=== PATIENT | female | born 2000 | race Caucasian/White ===

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

== ENCOUNTER 2018-01-15 18:02 | Emergency (ER) | payer OTHER ==
[2018-01-15 18:10] VITALS: BP 101/69
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
== END 2018-01-15 20:12 | disposition home or self-care (01) ==
LOC: ED 18:02
DX: S63.591A Other specified sprain of right wrist, initial encounter (principal); X50.1XXA Overexertion from prolonged static or awkward postures, initial encounter; Y93.F9 Activity, other caregiving; Y92.099 Unspecified place in other non-institutional residence as the place of occurrence of the external cause; Y99.0 Civilian activity done for income or pay
CPT/HCPCS: 99282; 99283

== ENCOUNTER 2018-01-17 12:42 | Emergency (ER) | payer OTHER ==
[2018-01-17 12:56] VITALS: BP 104/82
--- NOTE | 2018-01-17 14:08 | ED Physician Documentation ---
PD HPI UPPER EXT INJURY - Stated complaint Stated Complaint: ARM PX - Chief complaint Chief Complaint: General - History obtained from History obtained from: Patient - History of Present Illness Location: Left, Wrist Recently seen: Emergency Dept (2 days ago.) - Additonal information Additional information: The patient is a 17-year-old female who was seen here in the emergency department 2 days ago and diagnosed with a left wrist sprain. She returns today because her employer, [employer], is requesting a work release/restr iction form before she can return to work. She reports that her pain is improving, although she continues to have discomfort with range of motion in the wrist. She has been wearing the Velcro wrist splint that was applied with and seen here 2 days ago. Review of Systems Constitutional: denies: Fever Musculoskeletal: reports: Joint pain (left wrist). denies: Joint swelling Neurologic: denies: Focal weakness, Numbness PD PAST MEDICAL HISTORY - Past Medical History Psych: Depression, Anxiety, ADD/ADHD - Past Surgical History Past Surgical History: No - Present Medications Home Medications: Ambulatory Orders Medication Instructions Recorded Confirmed Medroxyprogesterone Acetate 150 mg IM 01/15/18 [Depo-Provera] - Allergies Allergies/Adverse Reactions: Allergies Allergy/AdvReac Type Severity Reaction Status Date / Time Penicillins AdvReac Unknown Verified 01/17/18 12:55 - Social History Does the pt smoke?: No Smoking Status: Never smoker Does the pt drink ETOH?: No Does the pt have substance abuse?: Yes - Immunizations Immunizations are current?: Yes - POLST Patient has POLST: No PD ED PE NORMAL - Vitals Vital signs reviewed: Yes (normal) - General General: Alert and oriented X 3, Well developed/nourished - HEENT HEENT: Atraumatic - Respiratory Respiratory: No respiratory distress - Derm Derm: No rash - Extremities Extremities: Other (There is mild tenderness to palpation at the radial dorsal aspect of the left wrist. It is exacerbated with extension and flexion of the wrist. Distal neurovascular is intact.) - Neuro Neuro: Alert and oriented X 3, No motor deficit, No sensory deficit Results - Vitals Vitals: Oxygen O2 Source Room air PD MEDICAL DECISION MAKING - ED course Complexity details: reviewed old records, considered differential, d/w patient ED course: The patient's presentation is most consistent with improving left wrist sprain. Her sole reason for coming to the emergency department is to have paperwork filled out for her employer. The paperwork was completed and signed. I suggested to the patient that establishing care with the primary care physician would be a good idea. Departure - Departure Disposition: 01 Home, Self Care Clinical Impression: Encounter for wound re-check Condition: Stable Instructions: ED Splint Care Velcro, ED Sprain Wrist Follow-Up: Estefanía Santana PA-C [Primary Care Provider] - Comments: You can use ibuprofen, up to 600 mg 3 times daily for its anti-inflammatory effect. Follow-up with your primary physician within 2 weeks. Call to schedule an appointment. Return to the emergency department if you develop increasing pain, numbness or weakness, or otherwise worsening symptoms. Discharge Date/Time: 01/17/18 14:13
== END 2018-01-17 14:13 | disposition home or self-care (01) ==
LOC: ED 12:42
DX: S63.502D Unspecified sprain of left wrist, subsequent encounter (principal); X58.XXXD Exposure to other specified factors, subsequent encounter
CPT/HCPCS: 99282

== ENCOUNTER 2018-06-27 08:00 | Outpatient (CLI) | payer OTHER ==
[2018-06-27 12:34] LABS: BASOPHILS % (AUTO) 0.4 %; EOSINOPHILS % (AUTO) 0.9 %; HGB - HEMOGLOBIN 12.8 g/dL (12.0-16.0); LYMPHOCYTES % (AUTO) 32.3 %; MEAN CORPUSCULAR HEMOGLOBIN 27.9 pg (27.0-31.0); MEAN CORPUSCULAR VOLUME 84.4 fL (81.0-99.0); MEAN PLATELET VOLUME 8.2 fL (7.9-10.8); MONOCYTES % (AUTO) 11.8 %; NEUTROPHILS % (AUTO) 54.6 %; PLT - PLATELET COUNT 211 10^3/uL (130-450); RED CELL DISTRIBUTION WIDTH 14.3 % (12.0-15.0); WHITE BLOOD COUNT 4.5 x10^3/uL (4.8-10.8)
[2018-06-27 12:52] LABS: ALBUMIN 4.5 g/dL (3.2-5.5); ALBUMIN/GLOBULIN RATIO 1.6 (1.0-2.2); BILIRUBIN,TOTAL 0.5 mg/dL (0.2-1.0); CALCIUM 9.2 mg/dL (8.5-10.3); CREATININE 0.5 mg/dL (0.4-1.0); TOTAL PROTEIN 7.3 g/dL (6.7-8.2)
[2018-06-27 12:55] LABS: HB2 TOTAL 13.7 g/dL; HEMOGLOBIN A1C 0.5 g/dL; HEMOGLOBIN A1C % 5.5 % (4.6-6.2)
[2018-06-27 13:44] LABS: ABNORMAL LYMPHS % (MANUAL) 0 %
[2018-06-27 13:47] LABS: BAND NEUTROPHILS % (MANUAL) 1 %; BASOPHILS % (MANUAL) 1 %; LYMPHOCYTES # (MANUAL) 1.7 10^3/uL (1.5-3.5); LYMPHOCYTES % (MANUAL) 37 %; MONOCYTES # (MANUAL) 0.5 10^3/uL (0.0-1.0); NEUTROPHILS # (MANUAL) 2.2 10^3/uL (1.5-6.6); NEUTROPHILS % (MANUAL) 48 %
[2018-06-27 13:48] LABS: RBC MORPHOLOGY (MULTIPLE) NORMAL APPEARANCE (NORMAL)
[2018-06-27 13:49] LABS: DIFFERENTIAL COMMENT MANUAL DIFFERENTIAL; PLATELET ESTIMATE, MANUAL NORMAL (130-450,000) (NORMAL); PLATELET MORPHOLOGY NORMAL APPEARANCE (NORMAL)
[2018-06-28 11:12] LABS: HIV AG/AB 4TH GEN NON-REACTIVE (NON-REACTIVE)
== END 2018-06-27 23:59 | disposition home or self-care (01) ==
LOC: LAB.WCP 08:00
PROVIDERS: ATTEND Physician Assistant
DX: Z00.00 Encounter for general adult medical examination without abnormal findings (principal); Z20.2 Contact with and (suspected) exposure to infections with a predominantly sexual mode of transmission
CPT/HCPCS: 36415; 80053; 83036; 84443; 85025; 87389; 87491; 87591

== ENCOUNTER 2018-08-07 09:00 | Outpatient (CLI) | payer OTHER ==
[2018-08-07 21:39] LABS: TRICHOMONAS VAGINALIS DNA NEGATIVE (NEGATIVE)
== END 2018-08-07 09:01 | disposition home or self-care (01) ==
LOC: LAB.WCP 09:00
PROVIDERS: ATTEND Physician Assistant Medical
DX: A74.9 Chlamydial infection, unspecified (principal)
CPT/HCPCS: 87491; 87591; 87661

== ENCOUNTER 2018-09-15 18:51 | Emergency (ER) | payer OTHER ==
[2018-09-15 19:48] LABS: BASOPHILS % (AUTO) 0.5 %; EOSINOPHILS % (AUTO) 0.2 %; LYMPHOCYTES # (AUTO) 1.2 10^3/uL (1.5-3.5); MEAN CORPUSCULAR HEMOGLOBIN 27.5 pg (27.0-31.0); MEAN CORPUSCULAR HGB CONC 31.4 g/dL (32.0-36.0); MEAN CORPUSCULAR VOLUME 87.6 fL (81.0-99.0); MEAN PLATELET VOLUME 10.1 fL (7.9-10.8); MONOCYTES # (AUTO) 0.6 10^3/uL (0.0-1.0); MONOCYTES % (AUTO) 10.8 %; NEUTROPHILS % (AUTO) 68.3 %; PLT - PLATELET COUNT 194 10^3/uL (130-450); RED BLOOD COUNT 4.36 10^6/uL (4.20-5.40); RED CELL DISTRIBUTION WIDTH 13.1 % (12.0-15.0); WHITE BLOOD COUNT 5.8 x10^3/uL (4.8-10.8)
[2018-09-15 19:59] LABS: SODIUM 139 mmol/L (135-145)
[2018-09-15 20:00] LABS: BUN - BLOOD UREA NITROGEN 12 mg/dL (6-20); CALCIUM 9.1 mg/dL (8.5-10.3); CARBON DIOXIDE - CO2 24 mmol/L (21-32); CHLORIDE 105 mmol/L (101-111); CREATININE 0.8 mg/dL (0.4-1.0); GFR - MDRD 91 (>89); GLUCOSE 104 mg/dL (70-100)
--- NOTE | 2018-09-15 20:04 | ED Physician Documentation ---
PD HPI MHE - Stated complaint Stated Complaint: MHE - Chief complaint Chief Complaint: Laceration - History obtained from History obtained from: Patient - History of Present Illness Primary symptom: Self harm - cut (The patient's boyfriend found out that his prior girlfriend was and so he left the relationship with the patient. The patient is now upset and feel felt that she had no self-worth. She took a razor, not razor blade, and cut at her hips. I asked her about the location and she said she wanted to cut herself there so that no one would want to see her or be interested in her pelvic area. She did not feel that she was suicidal per se. She has no history of self cutting. She does have a history of depression and suicidal ideation in the past, with prior attempt with meds. I asked if she still felt that she would hurt herself further and she said she was not feeling suicidal per se but did not know if she would cut herself more if she felt stressed again overnight.) Timing - onset: How many days ago (few days of increased depression and anxiety.) Contributing factors: Sig other. No: Substance abuse - ETOH, Substance abuse - drugs Similar symptoms before: Diagnosis (She does have a history of depression and anxiety. She had been on anxiety medications in the past. She denies any long-term antidepressants. She states in the past some anxiety medicines have worsened her depression. She has not had any prescription medications for couple of years she says. Her local provider was at the [facility] which now is closed so she does not have a primary care easily accessible. She still sees her counselor as often as possible given her work.) Recently seen: Clinic (She has a counselor that she sees, Nathan Beard, but has not seen her in a few weeks due to her work schedule. 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.) Review of Systems Constitutional: denies: Fever, Chills Nose: denies: Rhinorrhea / runny nose, Congestion Throat: denies: Sore throat Respiratory: denies: Cough GI: denies: Nausea, Vomiting : denies: Dysuria, Frequency Musculoskeletal: denies: Neck pain, Back pain Neurologic: denies: Near syncope Endocrine: denies: Weight loss, Easy bruising / bleeding PD PAST MEDICAL HISTORY - Past Medical History Past Medical History: Yes Psych: Depression, Anxiety, ADD/ADHD - Past Surgical History Past Surgical History: Yes HEENT: Tonsil/Adenoidectomy - Present Medications Home Medications: Ambulatory Orders Medication Instructions Recorded Confirmed Medroxyprogesterone Acetate 150 mg IM 01/15/18 [Depo-Provera] - Allergies Allergies/Adverse Reactions: Allergies Allergy/AdvReac Type Severity Reaction Status Date / Time Penicillins AdvReac Unknown Verified 01/17/18 12:55 - Social History Does the pt smoke?: No Smoking Status: Never smoker Does the pt drink ETOH?: No Does the pt have substance abuse?: Yes Substance Use and Type: Marijuana - Immunizations Immunizations are current?: Yes - POLST Patient has POLST: No PD ED PE NORMAL - Vitals Vital signs reviewed: Yes - General General: Alert and oriented X 3, Well developed/nourished, Other (tearful when talking about events. Alert and conversant.) - HEENT HEENT: Atraumatic - Neck Neck: Supple, no meningeal sign, No adenopathy - Cardiac Cardiac: RRR, No murmur - Respiratory Respiratory: Clear bilaterally - Abdomen Abdomen: Soft, Non tender - Derm Derm: Other (bilateral anterior hips (ant superior iliac spines area) with superficial to partial thickness abrasions c/w shaving razor cuts. No active bleeding and no FB. ) - Neuro Neuro: Alert and oriented X 3, No motor deficit, Normal speech - Psych Psych: No: Normal mood (sad and tearful) Results - Vitals Vitals: Vital Signs - 24 hr 09/15/18 09/16/18 19:09 06:05 Temperature 36.0 C L 36.0 C L Heart Rate 82 82 Respiratory 16 16 Rate Blood Pressure 128/77 108/70 O2 Saturation 100 98 Oxygen O2 Source Room air - Labs Labs: Laboratory Tests 09/15/18 09/15/18 09/15/18 19:40 19:40 20:05 WBC 5.8 RBC 4.36 Hgb 12.0 Hct 38.2 MCV 87.6 MCH 27.5 MCHC 31.4 L RDW 13.1 Plt Count 194 MPV 10.1 Neut # (Auto) 4.0 Lymph # (Auto) 1.2 L Gage # (Auto) 0.6 Eos # (Auto) 0.0 Baso # (Auto) 0.0 Absolute Nucleated RBC 0.00 Nucleated RBC % 0.0 Sodium 139 Potassium 3.6 Chloride 105 Carbon Dioxide 24 Anion Gap 10.0 BUN 12 Creatinine 0.8 Estimated GFR (MDRD) 91 Glucose 104 H Calcium 9.1 Urine Color Urine Clarity Urine pH Ur Specific [place] Urine Protein Urine Glucose (UA) Urine Ketones Urine Occult Blood Urine Nitrite Urine Bilirubin Urine Urobilinogen Ur Leukocyte Esterase Urine RBC Urine WBC Ur Squamous Epith Cells Urine Bacteria Urine Mucus Ur Microscopic Review Urine Culture Comments Urine HCG, Qual Urine Opiates Screen NEGATIVE Ur Oxycodone Screen NEGATIVE Urine Methadone Screen NEGATIVE Ur Propoxyphene Screen NEGATIVE Ur Barbiturates Screen NEGATIVE Ur Tricyclics Screen NEGATIVE Ur Phencyclidine Scrn NEGATIVE Ur Amphetamine Screen NEGATIVE U Methamphetamines Scrn NEGATIVE U Benzodiazepines Scrn NEGATIVE Urine Cocaine Screen NEGATIVE U Cannabinoids Screen NEGATIVE Ethyl Alcohol < 5.0 09/15/18 20:05 WBC RBC Hgb Hct MCV MCH MCHC RDW Plt Count MPV Neut # (Auto) Lymph # (Auto) Gage # (Auto) Eos # (Auto) Baso # (Auto) Absolute Nucleated RBC Nucleated RBC % Sodium Potassium Chloride Carbon Dioxide Anion Gap BUN Creatinine Estimated GFR (MDRD) Glucose Calcium Urine Color YELLOW Urine Clarity CLEAR Urine pH 5.5 Ur Specific [place] >=1.030 H Urine Protein NEGATIVE Urine Glucose (UA) NEGATIVE Urine Ketones TRACE Urine Occult Blood MODERATE H Urine Nitrite NEGATIVE Urine Bilirubin NEGATIVE Urine Urobilinogen 0.2 (NORMAL) Ur Leukocyte Esterase NEGATIVE Urine RBC 0-5 Urine WBC 0-3 Ur Squamous Epith Cells MOD Squamous H Urine Bacteria None Seen Urine Mucus Moderate Strands Ur Microscopic Review INDICATED Urine Culture Comments NOT INDICATED Urine HCG, Qual NEGATIVE Urine Opiates Screen Ur Oxycodone Screen Urine Methadone Screen Ur Propoxyphene Screen Ur Barbiturates Screen Ur Tricyclics Screen Ur Phencyclidine Scrn Ur Amphetamine Screen U Methamphetamines Scrn U Benzodiazepines Scrn Urine Cocaine Screen U Cannabinoids Screen Ethyl Alcohol PD MEDICAL DECISION MAKING - ED course Complexity details: re-evaluated patient (The patient rested overnight. She is feeling more relaxed. She denies any feeling of wanting to hurt her self. She denies suicidality still. She wants to call her father and go home with him and asked for a note off work today and she said should resume work tomorrow. I feel comfortable for her to be discharged safely.), considered differential (She did not feel suicidal but was not sure if she would control impulse for cutting if she felt more stressed again later. Does not feel the urge right now. She said she wanted to distract from her emotional pain with the physical pain. I talked with her awhile, and also had her talk with Crisis Line. Consensus was for patient to stay in ER overngiht and talk with SW in AM and likely stay with her grandparents for the week (she would feel more comfortable there than with her mom, who she says is not as supportive). I do not see grounds for detainment, so did not have [facility] eval. Patient not wanting hospitalization voluntarily. Different safe setting would be sufficient and tonight here to give buffer zone emotionally. ), d/w patient Departure - Departure Disposition: Home, Self Care Clinical Impression: Reactive depression, Deliberate self-cutting Laceration of hip Qualifiers: Encounter type: initial encounter Laterality: unspecified laterality Qualified Code(s): S71.019A - Laceration without foreign body, unspecified hip, initial encounter Condition: Stable Record reviewed to determine appropriate education?: Yes Instructions: ED Abrasion Follow-Up: Estefanía Santana PA-C [Primary Care Provider] - Comments: Its okay to wash and shower. Cleanse the abrasions and lacerations twice daily with soap and water and apply antibiotic ointment. Tylenol or ibuprofen if needed for pains. Recheck if signs of infection. Follow-up with your primary care regarding medications for depression and anxiety. We could restart medications he had been on previously. Follow-up with your counselor, Nathan Metz, call her today for a sooner a ppointment. Promised not to hurt yourself. Forms: Activity restrictions
[2018-09-15 20:11] LABS: MUDS CUTOFF CONCENTRATIONS CUTOFF CONC BELOW:
[2018-09-15 20:17] LABS: BILIRUBIN,URINE NEGATIVE (NEGATIVE); GLUCOSE, URINE (UA) NEGATIVE (NEGATIVE); KETONES,URINE (UA) TRACE mg/dL (NEGATIVE); LEUKOCYTE ESTERASE, URINE NEGATIVE (NEGATIVE); NITRITE,URINE NEGATIVE (NEGATIVE); OCCULT BLOOD,URINE MODERATE (NEGATIVE); PH,URINE 5.5 PH (5.0-7.5); PROTEIN,URINE NEGATIVE (NEGATIVE); UROBILINOGEN,URINE 0.2 (NORMAL) E.U./dL (NORMAL)
[2018-09-15 20:18] LABS: CLARITY,URINE CLEAR (CLEAR)
[2018-09-15 20:19] LABS: HCG UR QUAL NEGATIVE
[2018-09-15 20:25] LABS: BACTERIA,URINE None Seen /HPF (None Seen); MUCUS,URINE Moderate Strands; RBC,URINE 0-5 /HPF (0-5); SQUAMOUS EPITHELIAL CELL,UR MOD Squamous (<= Few)
[2018-09-15 20:27] LABS: AMPHETAMINE SCREEN,URINE NEGATIVE (NEGATIVE); BENZODIAZEPINES SCREEN, URINE NEGATIVE (NEGATIVE); COCAINE SCREEN URINE NEGATIVE (NEGATIVE); METHADONE SCREEN, URINE NEGATIVE (NEGATIVE); METHAMPHETAMINES SCREEN, URINE NEGATIVE (NEGATIVE); OPIATE SCREEN, URINE NEGATIVE (NEGATIVE); OXYCODONE SCREEN, URINE NEGATIVE (NEGATIVE); PROPOXYPHENE SCREEN, URINE NEGATIVE (NEGATIVE); TRICYCLIC ANTIDEPRESSANT,URINE NEGATIVE (NEGATIVE)
[2018-09-15] MEDS ORDERED: LORazepam 0.5 MG TABLET PO STA (20:42)
[2018-09-15] MEDS ORDERED: LIDOCAINE OINTMENT 5% 35.44 GM TUBE TOP STA (20:42)
[2018-09-15] MEDS ORDERED: ACETAMINOPHEN 325 MG TABLET PO STA (20:42)
[2018-09-15] MEDS ORDERED: diphenhydrAMINE 25 MG CAPSULE PO STA (23:15)
[2018-09-16] MEDS ORDERED: ACETAMINOPHEN 325 MG TABLET PO STA (05:55)
[2018-09-16] MEDS ORDERED: NAPROXEN 250 MG TABLET PO STA (05:55)
[2018-09-16 06:07] VITALS: BP 108/70
[2018-09-16] MEDS ORDERED: BACITRACIN OINT TOP ONE (08:17)
== END 2018-09-16 08:53 | disposition home or self-care (01) ==
LOC: ED 18:51
DX: S70.212A Abrasion, left hip, initial encounter (principal); S70.211A Abrasion, right hip, initial encounter; X78.8XXA Intentional self-harm by other sharp object, initial encounter; F32.9 Major depressive disorder, single episode, unspecified; F41.9 Anxiety disorder, unspecified; F90.9 Attention-deficit hyperactivity disorder, unspecified type
CPT/HCPCS: 36415; 80048; 80320; 81001; 81025; 85025; 99283; A9270; 80306; 81003; 87086

== ENCOUNTER 2018-10-22 07:51 | Outpatient (CLI) | payer OTHER ==
--- NOTE | 2018-10-22 15:09 | XRAY Report ---
Reason: IUD CHECK Procedure Date: 10/22/2018 Accession Number: [id number] / [id number] Procedure: WCP - Pelvis 1 View CPT Code: FULL RESULT: EXAM: PELVIS RADIOGRAPHY EXAM DATE: 10/22/2018 08:10 AM. CLINICAL HISTORY: IUD check. COMPARISON: None. TECHNIQUE: 1 view. FINDINGS: Bones: Normal. No fracture or bone lesion. Joints: The visualized hip, pubis symphysis, and sacroiliac joints are preserved. No subluxation. Soft Tissues: IUD projects just to the right of midline in the true pelvis.. IMPRESSION: IUD in the mid true pelvis. [facility]
== END 2018-10-22 23:59 | disposition home or self-care (01) ==
LOC: DI.WCP 07:51 → EDSTATUS 13:21 → DI.WCP 23:59
PROVIDERS: ATTEND Family Medicine
DX: Z30.431 Encounter for routine checking of intrauterine contraceptive device (principal)
CPT/HCPCS: 72170

== ENCOUNTER 2019-02-16 18:31 | Emergency (ER) | payer OTHER ==
[2019-02-16] MEDS ORDERED: LORazepam 1 MG TABLET PO STA (19:17)
--- NOTE | 2019-02-16 19:27 | ED Physician Documentation ---
History of Present Illness - Stated complaint Stated Complaint: ELEVATED HR - Chief complaint Chief Complaint: General - History obtained from History obtained from: Patient - History of Present Illness Timing: Today Pain level max: 0 Pain level now: 0 - Additonal information Additional information: 18-year-old female states that she was at work today and noticed that her heart rate was around 100-110. She states that she was feeling anxious and that her hands were tingling. This happens to her often. She does have a history of anxiety. Sometimes her chest feels tight as well. When this happens she feels like she has trouble breathing as well. She states that her job is very stressful. Nothing makes it better or worse. Review of Systems Constitutional: denies: Fever, Chills Ears: denies: Ear pain Nose: denies: Rhinorrhea / runny nose, Congestion Respiratory: denies: Cough GI: denies: Vomiting, Diarrhea : denies: Now EGA Skin: denies: Rash Musculoskeletal: denies: Neck pain, Back pain Neurologic: denies: Headache PD PAST MEDICAL HISTORY - Past Medical History Past Medical History: Yes Psych: Depression, Anxiety, ADD/ADHD - Past Surgical History Past Surgical History: Yes HEENT: Tonsil/Adenoidectomy - Present Medications Home Medications: Ambulatory Orders Medication Instructions Recorded Confirmed Medroxyprogesterone Acetate 150 mg IM 01/15/18 [Depo-Provera] - Allergies Allergies/Adverse Reactions: Allergies Allergy/AdvReac Type Severity Reaction Status Date / Time Penicillins AdvReac Unknown Verified 02/16/19 18:44 - Social History Does the pt smoke?: No Smoking Status: Never smoker Does the pt drink ETOH?: No Does the pt have substance abuse?: Yes - Immunizations Immunizations are current?: Yes - POLST Patient has POLST: No PD ED PE NORMAL - Vitals Vital signs reviewed: Yes - General General: Alert and oriented X 3, Well developed/nourished, Other (Very anxious a ppearing) - HEENT HEENT: PERRL, Moist mucous membranes - Neck Neck: Supple, no meningeal sign - Cardiac Cardiac: RRR, No murmur, Strong equal pulses - Respiratory Respiratory: No respiratory distress, Clear bilaterally - Abdomen Abdomen: Soft, Non tender, Non distended - Back Back: No spinal TTP - Derm Derm: Warm and dry - Extremities Extremities: No edema, No calf tenderness / cord - Neuro Neuro: Alert and oriented X 3, 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, No motor deficit, No sensory deficit, Normal speech - Psych Psych: Normal mood, Normal affect Results - Vitals Vitals: Vital Signs - 24 hr 02/16/19 02/16/19 18:40 20:30 Temperature 37.4 C Heart Rate 90 75 Respiratory 18 18 Rate Blood Pressure 114/66 124/75 O2 Saturation 100 100 Oxygen O2 Source Room air - EKG (time done) 1936 Rate: Rate (enter#) (82) Rhythm: NSR Petal: Normal Intervals: Normal SC QRS: Normal Ischemia: Normal ST segments PD MEDICAL DECISION MAKING - ED course Complexity details: reviewed results, re-evaluated patient, considered differential, d/w patient ED course: 18-year-old female with what appears to be a panic attack tonight. She was given Ativan and symptoms resolved. She states that she feels much better. No acute findings on EKG or telemetry. No indication for lab testing at this time. We will have her follow-up with her doctor for further care. Patient counseled regarding signs and symptoms for which I believe and urgent re-evaluation would be necessary. Patient with good understanding of and agreement to plan and is comfortable going home at this time This document was made in part using voice recognition software. While efforts are made to proofread this document, sound alike and grammatical errors may occur. Departure - Departure Disposition: 01 Home, Self Care Clinical Impression: Panic attack Condition: Good Instructions: ED Panic Attack Follow-Up: Estefanía Santana PA-C [Primary Care Provider] - Within 1 week Comments: Follow-up with your doctor for further care to discuss medications for your anxiety. Return if you worsen You were given lorazepam tonight Discharge Date/Time: 02/16/19 20:30
[2019-02-16 20:31] VITALS: BP 124/75
== END 2019-02-16 20:30 | disposition home or self-care (01) ==
LOC: ED 18:31
DX: F41.0 Panic disorder [episodic paroxysmal anxiety] (principal)
CPT/HCPCS: 93005; 99283; 99284; J8499

== ENCOUNTER 2019-05-21 08:00 | Outpatient (CLI) | payer OTHER | END 2019-05-21 23:59 | disposition home or self-care (01) | LOC: LAB.R 08:00 | PROVIDERS: ATTEND Physician Assistant Medical | DX: L02.91 Cutaneous abscess, unspecified (principal) | CPT/HCPCS: 87070; 87205 ==